=== PATIENT | female | born 2000 | race Caucasian/White ===

== ENCOUNTER 2021-06-05 15:05 | Inpatient (IN) | payer OTHER ==
[2021-06-05 15:36] VITALS: BMI 26.2
[2021-06-05] MEDS ORDERED: hydrALAZINE 20 MG/ML VIAL SLOW IVP PRN (15:58)
[2021-06-05] MEDS: Lactated Ringer's 1,000 ML IV SCH ×2 (16:27→17:22)
[2021-06-05] MEDS: Morphine 4 MG/ML VIAL SLOW IVP PRN ×2 (17:29→21:48)
[2021-06-05 18:01] LABS: #Monocytes 0.8 10x3/uL (0.0-1.1); #Neutrophils 9.5 10x3/uL (1.5-8.4); %Basophils 0.2 % (0.0-2.0); %Eosinophils 0.1 % (0.0-6.0); %Lymphocytes 15.4 % (18.0-47.0); %Monocytes 6.2 % (0.0-10.0); %Neutrophils 77.8 % (40.0-75.0); Hemoglobin 12.8 g/dL (12.0-15.5); Mean Corpuscular Hemoglobin 31.1 pg (27.0-33.0); Mean Corpuscular Volume 91.7 fl (81.6-98.3); Mean Platelet Volume 9.1 fl (7.4-10.4); Platelet Count 271 10x3/uL (150-450); RBC Distribution Width 14.2 % (11.5-14.5); Red Blood Cell (RBC) Count 4.11 10x6/uL (3.90-5.03); White Blood Cell (WBC) Count 12.2 10x3/uL (3.5-10.5)
[2021-06-05 18:35] LABS: HIV (1/2) Antibody/Antigen Non-Reactive (NonReactive); Hep B Surf Ag Non-Reactive S/CO (NonReactive)
[2021-06-05 18:38] LABS: ALT (SGPT) 39 U/L (8-55); AST (SGOT) 28 U/L (5-34); Albumin 3.7 g/dL (3.5-5.0); Alkaline Phosphatase 119 U/L (40-100); Anion Gap 17 mmol/L (10-20); BUN (Urea Nitrogen) 7 mg/dL (7.0-18.7); Bilirubin, Total 0.5 mg/dL (0.2-1.2); Calc. Creatinine Clearance 172 mL/min (70-130); Calcium 8.8 mg/dL (7.8-10.44); Carbon Dioxide 21 mmol/L (22-29); Chloride 102 mmol/L (98-107); Globulin 2.9 g/dL (2.4-3.5); Glucose 62 mg/dL (70-105); Potassium 3.9 mmol/L (3.5-5.1); Protein, Total 6.6 g/dL (6.0-8.3); Sodium 136 mmol/L (136-145)
[2021-06-05 18:42] LABS: HBSAg Index 0.18 S/CO (0-0.99)
[2021-06-05 18:58] LABS: Syphilis Antibody Nonreactive (Nonreactive); Syphilis Antibody Index 0.04 S/CO (<1.00 Non-Reactive)
[2021-06-05] MEDS ORDERED: Promethazine HCl 25 MG/ML VIAL IM PRN (23:28)
[2021-06-05] MEDS ORDERED: Ondansetron PF 4 MG/2 ML Vial IVP PRN (23:28)
[2021-06-05] MEDS ORDERED: Lactated Ringer's 1,000 ML IV SCH (23:30)
[2021-06-05] MEDS ORDERED: cefTRIAXone\\ROCEPHIN 2 GM in Sodium Chloride 0.9% 100 ML IVPB SCH (23:30)
[2021-06-05 23:54] LABS: SARS-CoV-2 NAA Rapid Test DETECTED (NotDetected)
[2021-06-06] MEDS: Sodium Chloride 0.9% 1,000 ML IV SCH ×2 (00:59→15:14)
[2021-06-06] MEDS: metroNIDAZOLE 500 MG in Premix Bag 1 BAG IVPB SCH ×2 (02:11→09:30)
[2021-06-06] MEDS ORDERED: Bupivacaine PF 0.5% 30 ML VIAL ONE (09:22)
[2021-06-06] MEDS ORDERED: EPINEPHrine 1 MG/ML AMP ONE (09:22)
[2021-06-06] MEDS ORDERED: Lidocaine 2% PF 5 ML VIAL ONE (09:23)
[2021-06-06] MEDS ORDERED: Rocuronium Bromide 10 MG/ML (10ML VIAL) ONE (09:23)
[2021-06-06] MEDS ORDERED: PROPOFOL 20 ML ONE (09:23)
[2021-06-06] MEDS ORDERED: Metoclopramide HCl 10 MG/2 ML VIAL ONE (09:24)
[2021-06-06] MEDS ORDERED: Ondansetron PF 4 MG/2 ML Vial ONE (09:24)
[2021-06-06] MEDS ORDERED: PHENYLEPHRINE-NS 100 MCG/ML 10 ML SYRINGE ONE (09:24)
[2021-06-06] MEDS ORDERED: Dexamethasone 4 mg/ml Vial ONE (09:24)
[2021-06-06] MEDS ORDERED: Succinylcholine 200 MG/10 ml SYRINGE FS ONE (09:24)
[2021-06-06] MEDS ORDERED: SUGAMMADEX SODIUM 200 MG/2 ML VIAL ONE (09:26)
[2021-06-06] MEDS ORDERED: Fentanyl 100 MCG/2 ML VIAL ONE ×2 (09:26→11:34)
[2021-06-06] MEDS ORDERED: Famotidine/PF 20 mg/2ml Vial ONE (09:27)
[2021-06-06] MEDS ORDERED: Ketorolac Tromethamine 15 MG/ML VIAL ONE (11:06)
[2021-06-06] MEDS ORDERED: Acetaminophen 500 MG TAB PO PRN (11:29)
[2021-06-06 13:55] LABS: Hep C IgG Ab Non-Reactive (NonReactive); Hep C Index 0.18 S/CO (0-0.79)
[2021-06-06] MEDS ORDERED: Acetaminophen/Codeine 30-300mg Tablet PO PRN (18:34)
[2021-06-06] MEDS: Acetaminophen/Codeine 30-300mg Tablet PO PRN ×2 (18:37→18:42)
[2021-06-06] MEDS ORDERED: Acetaminophen/Codeine 30-300mg Tablet PO SCH (20:00)
[2021-06-06] MEDS ORDERED: traMADol HCl 50 MG TAB PO PRN (20:45)
[2021-06-06] MEDS: traMADol HCl 50 MG TAB PO PRN (21:36)
[2021-06-07] MEDS: traMADol HCl 50 MG TAB PO PRN ×3 (04:27→09:21)
[2021-06-07] MEDS ORDERED: Prenatal Vitamin 1 TAB PO SCH (09:00)
[2021-06-07 09:19] VITALS: BP 101/57; TEMP 98.4
== END 2021-06-07 11:09 | disposition home health service (06) | DRG 817 ==
LOC: CSHLD/OP 15:05 → CSHANTE 23:28 → UNDOADMIN 06-06 01:34 → CSHANTE 06-06 01:34
PROVIDERS: ADMIT Obstetrics & Gynecology; ATTEND Obstetrics & Gynecology
PROC: 0DTJ4ZZ Resection of Appendix, Percutaneous Endoscopic Approach (ICD-10-PCS; principal; 2021-06-06)
DX: O99.612 Diseases of the digestive system complicating pregnancy, second trimester (principal); U07.1 COVID-19; N13.30 Unspecified hydronephrosis; O98.512 Other viral diseases complicating pregnancy, second trimester; O99.891 Other specified diseases and conditions complicating pregnancy; K37 Unspecified appendicitis; K21.9 Gastro-esophageal reflux disease without esophagitis; N20.0 Calculus of kidney; O43.212 Placenta accreta, second trimester; Z79.899 Other long term (current) drug therapy; Z88.0 Allergy status to penicillin; Z88.8 Allergy status to other drugs, medicaments and biological substances; Z91.048 Other nonmedicinal substance allergy status; Z3A.23 23 weeks gestation of pregnancy
CPT/HCPCS: 0240U; 59025; 74177; 74181; 76770; 76815; 80053; 85025; 86762; 86780; 86803; 86850; 86900; 86901; 87340; 87389; 88304; 99285; A4649; C1713; J0171; J0696; J1100; J1885; J2001; J2270; J2405; J2704; J2765; J3010; J3490; S0020; S0028

== ENCOUNTER 2021-09-12 19:10 | Inpatient (IN) | payer OTHER, SELFPAY ==
[~2021-09-12 19:10] MED LIST: Bupivacaine/Epinephrine 0.25% 30 ML VIAL ONE
[2021-09-12 19:28] VITALS: BMI 34.0
[2021-09-12] MEDS ORDERED: Ibuprofen 800 MG TAB PO PRN (19:40)
[2021-09-12] MEDS ORDERED: Misoprostol 200 MCG TAB PR PRN (19:40)
[2021-09-12] MEDS ORDERED: hydrALAZINE 20 MG/ML VIAL SLOW IVP PRN (19:40)
[2021-09-12] MEDS ORDERED: Ondansetron PF 4 MG/2 ML Vial IVP PRN ×2 (19:40→20:52)
[2021-09-12] MEDS ORDERED: Promethazine HCl 25 MG/ML VIAL IM PRN ×2 (19:40→20:52)
[2021-09-12] MEDS ORDERED: Methylergonovine 0.2 MG/ML VIAL IM PRN (19:40)
[2021-09-12] MEDS ORDERED: Lidocaine 1% (PF) 30 ML VIAL SC PRN (19:40)
[2021-09-12] MEDS ORDERED: Acetaminophen 500 MG TAB PO PRN (19:40)
[2021-09-12] MEDS ORDERED: Carboprost 250 MCG/ML AMP IM PRN (19:40)
[2021-09-12] MEDS ORDERED: Lactated Ringer's 1,000 ML IV SCH (19:45)
[2021-09-12] MEDS ORDERED: NS w/ Oxytocin 30 units 500 ML IV SCH ×2 (19:45)
[2021-09-12 20:09] LABS: Hemoglobin 11.3 g/dL (12.0-15.5); Mean Corpuscular HGB CONC 33.5 g/dL (32.0-36.0); Mean Corpuscular Hemoglobin 29.7 pg (27.0-33.0); Mean Corpuscular Volume 88.5 fl (81.6-98.3); Mean Platelet Volume 8.9 fl (7.4-10.4); Platelet Count 352 10x3/uL (150-450); RBC Distribution Width 13.3 % (11.5-14.5); Red Blood Cell (RBC) Count 3.81 10x6/uL (3.90-5.03); White Blood Cell (WBC) Count 12.8 10x3/uL (3.5-10.5)
[2021-09-12] MEDS ORDERED: Fentanyl 2 mcg/Bup 0.1% Cadd 100 ML ONE (20:09)
[2021-09-12] MEDS ORDERED: Calcium Carbonate 500 MG ChewTAB PO PRN (20:26)
[2021-09-12 20:44] LABS: Hep B Surf Ag Non-Reactive S/CO (NonReactive)
[2021-09-12 20:46] LABS: Syphilis Antibody Nonreactive (Nonreactive); Syphilis Antibody Index 0.03 S/CO (<1.00 Non-Reactive)
[2021-09-12 20:49] LABS: HBSAg Index 0.17 S/CO (0-0.99)
[2021-09-12] MEDS ORDERED: Moisturizing Cream (Eucerin) 113 GM JAR TOP PRN (20:52)
[2021-09-12] MEDS ORDERED: Acetaminophen 325 MG TAB PO PRN (20:52)
[2021-09-12] MEDS ORDERED: diphenhydrAMINE 50 MG/ML VIAL IVP PRN (20:52)
[2021-09-12] MEDS ORDERED: ePHEDrine Sulfate 50 MG/10 ML VIAL SLOW IVP PRN (20:52)
[2021-09-12] MEDS ORDERED: Lactated Ringer's 500 ML IV PRN (20:52)
[2021-09-12] MEDS ORDERED: Naloxone HCl 0.4 mg/ml Vial IVP PRN ×2 (20:52)
[2021-09-12] MEDS ORDERED: Communication Order-Pharmacy FS SCH (21:00)
[2021-09-12] MEDS ORDERED: Fentanyl 2 mcg/Bupivacaine 0.1% Cassette 100 ML EPIDURAL SCH (21:00)
[2021-09-13] MEDS ORDERED: Fentanyl 2 mcg/Bup 0.1% Cadd 100 ML ONE (04:00)
[2021-09-13] MEDS ORDERED: Methylergonovine 0.2 MG/ML VIAL IM PRN (08:12)
[2021-09-13] MEDS ORDERED: Ondansetron PF 4 MG/2 ML Vial IVP PRN (08:12)
[2021-09-13] MEDS ORDERED: Promethazine HCl 25 MG/ML VIAL IM PRN (08:12)
[2021-09-13] MEDS ORDERED: Lanolin Ointment 7 GM TUBE TOP PRN (08:12)
[2021-09-13] MEDS ORDERED: Benzocaine-Menthol 82.5 ML CAN TOP PRN (08:12)
[2021-09-13] MEDS ORDERED: NS w/ Oxytocin 30 units 500 ML IV SCH (08:12)
[2021-09-13] MEDS ORDERED: Milk Of Magnesia 30 ML UDCUP PO PRN (08:12)
[2021-09-13] MEDS ORDERED: hydrALAZINE 20 MG/ML VIAL SLOW IVP PRN (08:12)
[2021-09-13] MEDS ORDERED: diphenhydrAMINE 25 MG CAP PO PRN (08:12)
[2021-09-13] MEDS ORDERED: Preparation H Ointment 28 GM TUBE PR PRN (08:12)
[2021-09-13] MEDS ORDERED: Bisacodyl 10 MG SUPP PR PRN (08:12)
[2021-09-13] MEDS ORDERED: Misoprostol 200 MCG TAB VAG PRN (08:12)
[2021-09-13] MEDS ORDERED: Ferrous Sulfate 325 MG TAB PO SCH (08:30)
[2021-09-13] MEDS: Docusate 100 MG CAP PO SCH ×2 (10:06→22:00)
[2021-09-13] MEDS: Ibuprofen 800 MG TAB PO SCH ×2 (10:07→17:48)
[2021-09-13] MEDS: Prenatal Vitamin 1 TAB PO SCH (10:07)
[2021-09-13 20:49] VITALS: TEMP 98.2
[2021-09-13] MEDS: Ferrous Sulfate 325 MG TAB PO SCH (20:51)
[2021-09-14] MEDS: Ibuprofen 800 MG TAB PO SCH ×2 (00:26→08:21)
[2021-09-14] MEDS ORDERED: Boostrix 0.5 ML (Tdap) VIAL IM ONE (08:12)
[2021-09-14] MEDS: Ferrous Sulfate 325 MG TAB PO SCH ×2 (08:15→14:34)
[2021-09-14] MEDS: Docusate 100 MG CAP PO SCH (08:21)
[2021-09-14] MEDS: Prenatal Vitamin 1 TAB PO SCH (08:22)
[2021-09-14 08:27] VITALS: BP 126/62
[2021-09-14] MEDS ORDERED: Methocarbamol 500 MG TAB PO PRN (14:24)
[2021-09-14] MEDS ORDERED: Gabapentin 300 MG CAP PO PRN (14:24)
== END 2021-09-14 15:55 | disposition home or self-care (01) | DRG 806 ==
LOC: CSHLD/OP 19:10 → CSHLD 20:03 → CSHPP 09-13 08:30
PROVIDERS: ADMIT Family Medicine; ATTEND Family Medicine
PROC: 10E0XZZ Delivery of Products of Conception, External Approach (ICD-10-PCS; principal; 2021-09-13)
PROC: 10907ZC Drainage of Amniotic Fluid, Therapeutic from Products of Conception, Via Natural or Artificial Opening (ICD-10-PCS; 2021-09-13)
PROC: 0UQMXZZ Repair Vulva, External Approach (ICD-10-PCS; 2021-09-13)
PROC: 0UQG7ZZ Repair Vagina, Via Natural or Artificial Opening (ICD-10-PCS; 2021-09-13)
DX: O36.5930 Maternal care for other known or suspected poor fetal growth, third trimester, not applicable or unspecified (principal); O71.4 Obstetric high vaginal laceration alone; Z37.0 Single live birth; O99.62 Diseases of the digestive system complicating childbirth; K21.9 Gastro-esophageal reflux disease without esophagitis; Z3A.37 37 weeks gestation of pregnancy; Z87.442 Personal history of urinary calculi; Z90.49 Acquired absence of other specified parts of digestive tract; Z88.0 Allergy status to penicillin; Z91.09 Other allergy status, other than to drugs and biological substances; O43.123 Velamentous insertion of umbilical cord, third trimester; O71.82 Other specified trauma to perineum and vulva
CPT/HCPCS: 51702; 85027; 86780; 86850; 86900; 86901; 87340; 99285; J2405; J2590

== ENCOUNTER 2021-09-14 22:54 | Emergency (ER) | payer OTHER | END 2021-09-14 23:53 | disposition home or self-care (01) | LOC: CSHERS 22:54 | DX: R20.0 Anesthesia of skin (principal); Z79.899 Other long term (current) drug therapy | CPT/HCPCS: 99283 ==

== ENCOUNTER 2021-09-23 02:12 | Observation (INO) | payer OTHER ==
[2021-09-23] MEDS ORDERED: Acetaminophen 500 MG TAB ONE (02:35)
[2021-09-23 02:52] LABS: #Basophils 0.1 10x3/uL (0.0-0.2); #Eosinphils 0.1 10x3/uL (0.0-0.5); #Monocytes 0.7 10x3/uL (0.0-1.1); #Neutrophils 7.7 10x3/uL (1.5-8.4); %Basophils 0.5 % (0.0-2.0); %Eosinophils 0.8 % (0.0-6.0); %Lymphocytes 11.9 % (18.0-47.0); %Monocytes 7.3 % (0.0-10.0); %Neutrophils 78.9 % (40.0-75.0); Bilirubin Neg (Negative); Blood, Urine 50 (Negative); Clarity Clear (Clear); Glucose, Urine (Dipstick) Normal (Negative); Hemoglobin 13.4 g/dL (12.0-15.5); Ketone, Urine Negative (Negative); Leukocyte 500 (Negative); Mean Corpuscular HGB CONC 33.1 g/dL (32.0-36.0); Mean Corpuscular Hemoglobin 29.3 pg (27.0-33.0); Mean Corpuscular Volume 88.4 fl (81.6-98.3); Mean Platelet Volume 8.3 fl (7.4-10.4); Nitrite Negative (Negative); Platelet Count 389 10x3/uL (150-450); Protein, Urine (Dipstick) Negative (Neg-Trace); RBC Distribution Width 13.1 % (11.5-14.5); Red Blood Cell (RBC) Count 4.58 10x6/uL (3.90-5.03); Specific Gravity, Urine 1.025 (1.002-1.036); Urobilinogen Normal mg/dL (Less than 2); White Blood Cell (WBC) Count 9.7 10x3/uL (3.5-10.5)
[2021-09-23 03:01] LABS: RBC/HPF 0-3 HPF (0-3); WBC/HPF 21-50 HPF (0-3)
[2021-09-23 03:02] LABS: Bacteria/HPF 1+ HPF (None Seen); Squamous Epithelial 0-3 HPF (0-3)
[2021-09-23 03:10] LABS: ALT (SGPT) 21 U/L (8-55); AST (SGOT) 21 U/L (5-34); Albumin 3.9 g/dL (3.5-5.0); Alkaline Phosphatase 168 U/L (40-100); Anion Gap 16 mmol/L (10-20); BUN (Urea Nitrogen) 18 mg/dL (7.0-18.7); Bilirubin, Total 0.2 mg/dL (0.2-1.2); Calc. Creatinine Clearance 0 mL/min (70-130); Calcium 9.6 mg/dL (7.8-10.44); Carbon Dioxide 22 mmol/L (22-29); Chloride 102 mmol/L (98-107); Globulin 3.4 g/dL (2.4-3.5); Glucose 93 mg/dL (70-105); Potassium 3.9 mmol/L (3.5-5.1); Protein, Total 7.3 g/dL (6.0-8.3); Sodium 136 mmol/L (136-145)
[2021-09-23] MEDS ORDERED: cefTRIAXone\\ROCEPHIN 1 GM VIAL ONE (03:27)
[2021-09-23] MEDS ORDERED: Benzocaine-Menthol 82.5 ML CAN TOP PRN (04:53)
[2021-09-23] MEDS ORDERED: Gabapentin 300 MG CAP PO PRN (04:53)
[2021-09-23] MEDS ORDERED: Methocarbamol 500 MG TAB PO PRN (04:53)
[2021-09-23] MEDS: Lactated Ringer's 1,000 ML IV SCH ×3 (06:16→23:20)
[2021-09-23] MEDS: Clindamycin/D5W 900 MG in Premix Bag 1 BAG IVPB SCH ×3 (06:16→21:55)
[2021-09-23] MEDS: Prenatal Vitamin 1 TAB PO SCH (07:47)
[2021-09-23] MEDS: Ferrous Sulfate 325 MG TAB PO SCH ×2 (07:47→17:56)
[2021-09-23] MEDS: Ibuprofen 800 MG TAB PO PRN ×2 (07:59→15:44)
[2021-09-23] MEDS ORDERED: Polyethylene Glycol 3350 17 GM Packet PO PRN (10:05)
[2021-09-23 13:53] VITALS: BMI 33.7
[2021-09-23] MEDS: Acetaminophen 325 MG TAB PO PRN ×2 (13:53→21:54)
[2021-09-24] MEDS: Lactated Ringer's 1,000 ML IV SCH (02:00)
[2021-09-24 03:59] LABS: #Monocytes 0.4 10x3/uL (0.0-1.1); #Neutrophils 4.3 10x3/uL (1.5-8.4); %Basophils 0.7 % (0.0-2.0); %Eosinophils 0.2 % (0.0-6.0); %Lymphocytes 17.4 % (18.0-47.0); %Monocytes 6.3 % (0.0-10.0); %Neutrophils 73.9 % (40.0-75.0); Hemoglobin 12.6 g/dL (12.0-15.5); Mean Corpuscular Hemoglobin 29.3 pg (27.0-33.0); Mean Corpuscular Volume 88.8 fl (81.6-98.3); Mean Platelet Volume 8.4 fl (7.4-10.4); Platelet Count 327 10x3/uL (150-450); RBC Distribution Width 13.2 % (11.5-14.5); White Blood Cell (WBC) Count 5.9 10x3/uL (3.5-10.5)
[2021-09-24 04:11] LABS: Anion Gap 16 mmol/L (10-20); BUN (Urea Nitrogen) 10 mg/dL (7.0-18.7); Calc. Creatinine Clearance 178 mL/min (70-130); Calcium 8.6 mg/dL (7.8-10.44); Carbon Dioxide 23 mmol/L (22-29); Chloride 104 mmol/L (98-107); Glucose 89 mg/dL (70-105); Potassium 3.9 mmol/L (3.5-5.1); Sodium 139 mmol/L (136-145)
[2021-09-24] MEDS: Clindamycin/D5W 900 MG in Premix Bag 1 BAG IVPB SCH (05:47)
[2021-09-24] MEDS: Ferrous Sulfate 325 MG TAB PO SCH (07:41)
[2021-09-24] MEDS: Prenatal Vitamin 1 TAB PO SCH (07:41)
[2021-09-24 07:46] VITALS: BP 108/63
[2021-09-24 09:11] VITALS: TEMP 99.3
== END 2021-09-24 09:35 | disposition home or self-care (01) ==
LOC: CSHERS 02:12 → INTOOBSV 05:44 → CSHPED 05:44
PROVIDERS: ADMIT Family Medicine; ATTEND Family Medicine
DX: O86.12 Endometritis following delivery (principal); Z88.0 Allergy status to penicillin; Z88.8 Allergy status to other drugs, medicaments and biological substances; Z91.048 Other nonmedicinal substance allergy status
CPT/HCPCS: 36415; 76856; 80048; 80053; 81003; 81015; 85025; 87086; 87491; 87591; 87804; 96365; 96375; 96376; G0378; J0696; J1580; J3490; J7120

== ENCOUNTER 2022-02-18 22:02 | Emergency (ER) | payer OTHER | END 2022-02-18 23:33 | disposition home or self-care (01) | LOC: CSHERS 22:02 | DX: R19.7 Diarrhea, unspecified (principal); R11.0 Nausea; Z79.899 Other long term (current) drug therapy | CPT/HCPCS: 99283 ==

== ENCOUNTER 2022-08-08 12:06 | Emergency (ER) | payer OTHER ==
[2022-08-08 13:30] LABS: Bilirubin Neg (Negative); Blood, Urine 25 (Negative); Clarity Clear (Clear); Glucose, Urine (Dipstick) Normal (Negative); Ketone, Urine Negative (Negative); Leukocyte 500 (Negative); Nitrite Negative (Negative); Protein, Urine (Dipstick) Negative (Neg-Trace); Specific Gravity, Urine 1.015 (1.005-1.030); Urobilinogen Normal mg/dL (Less than 2)
[2022-08-08 13:33] LABS: Pregnancy Test - Urine (BHCG) Negative (Negative); Pregu Control Background? CLEAR/WHITE (CLR/WHITE); Pregu Control Bar Appear? YES (CONTROL BAR); Specific Gravity 1.015 (1.002-1.036)
[2022-08-08 13:41] LABS: RBC/HPF 0-3 HPF (0-3)
[2022-08-08 13:42] LABS: Bacteria/HPF Rare-Few HPF (None Seen)
[2022-08-08 14:06] LABS: SARS-CoV-2 NAA Rapid Test Not Detected (NotDetected)
== END 2022-08-08 14:47 | disposition home or self-care (01) ==
LOC: CSHERS 12:06
DX: B34.9 Viral infection, unspecified (principal); Z20.822 Contact with and (suspected) exposure to COVID-19
CPT/HCPCS: 71045; 81003; 81015; 81025

== ENCOUNTER 2023-09-24 09:17 | Emergency (ER) | payer OTHER ==
[2023-09-24] MEDS ORDERED: Lorazepam 2 MG/ML VIAL ONE (10:16)
[2023-09-24 10:44] LABS: #Basophils 0.05 10x3/uL (0.0-0.2); #Eosinphils 0.13 10x3/uL (0.0-0.5); #Monocytes 0.37 10x3/uL (0.0-1.1); #Neutrophils 3.65 10x3/uL (1.5-8.4); %Basophils 0.8 % (0.0-2.0); %Eosinophils 2.1 % (0.0-6.0); %Lymphocytes 31.3 % (18.0-47.0); %Neutrophils 59.5 % (40.0-75.0); Hematocrit 42.6 % (34.9-44.5); Hemoglobin 14.7 g/dL (12.0-15.5); Mean Corpuscular HGB CONC 34.5 g/dL (32.0-36.0); Mean Corpuscular Volume 86.9 fl (81.6-98.3); Mean Platelet Volume 8.7 fl (7.4-10.4); Platelet Count 276 10x3/uL (150-450); RBC Distribution Width 13.2 % (11.5-14.5); White Blood Cell (WBC) Count 6.1 10x3/uL (3.5-10.5)
[2023-09-24 10:50] LABS: Acetaminophen Less than 10 mcg/mL (10.0-30.0); Alcohol Less than 10.0 mg/dL (Less than 10); Salicylate Less than 8.0 mg/dL (15.0-30.0)
[2023-09-24 10:54] LABS: ALT (SGPT) 15 U/L (8-55); AST (SGOT) 17 U/L (5-34); Albumin 4.1 g/dL (3.5-5.0); Alkaline Phosphatase 91 U/L (40-110); Anion Gap 13 mmol/L (10-20); BUN (Urea Nitrogen) 13 mg/dL (7.0-18.7); Bilirubin, Total 0.3 mg/dL (0.2-1.2); Calc. Creatinine Clearance 0 mL/min (70-130); Calcium 9.3 mg/dL (7.8-10.44); Carbon Dioxide 22 mmol/L (22-29); Chloride 106 mmol/L (98-107); Estimated GFR 112; Globulin 3.1 g/dL (2.4-3.5); Glucose 113 mg/dL (70-105); Potassium 4.2 mmol/L (3.5-5.1); Protein, Total 7.2 g/dL (6.0-8.3); Sodium 137 mmol/L (136-145)
[2023-09-24 10:56] LABS: Pregnancy Test - Urine (BHCG) Negative (Negative); Pregu Control Background? CLEAR/WHITE (CLR/WHITE); Pregu Control Bar Appear? YES (CONTROL BAR)
[2023-09-24 11:01] LABS: Amphetamine Not Detected (NotDetected); Barbiturates Screen Not Detected (NotDetected); Benzodiazepine Screen Not Detected (NotDetected); Cocaine Metabolite Screen Not Detected (NotDetected); Methadone Not Detected (NotDetected); Methamphetamine Not Detected (NotDetected); Opiate Screen Not Detected (NotDetected); Oxycodone Screen Not Detected (NotDetected); Phencyclidine (PCP) Not Detected (NotDetected); THC/Cannabinoid Screen Not Detected (NotDetected); Tricyclic Screen Not Detected (NotDetected)
[2023-09-24 11:18] LABS: Troponin I Less than 0.010 ng/mL (< 0.028)
[2023-09-24] MEDS ORDERED: Ketorolac Tromethamine 30 MG (1 mL) VIAL ONE (12:16)
== END 2023-09-24 13:29 | disposition home or self-care (01) ==
LOC: CSHERS 09:17
DX: R51.9 Headache, unspecified (principal); R00.2 Palpitations
CPT/HCPCS: 80053; 80306; 80307; 81025; 84443; 84484; 85025; 85379; 93005; 96374; 96375; J1885; J2060